=== PATIENT | male | born 1975 | race Caucasian/White ===

== ENCOUNTER 2022-09-19 16:16 | Emergency (ER) | payer BC, SELFPAY ==
[2022-09-19 16:17] VITALS: BP 141/97; PULSE 80; RESP 18; TEMP 36.4; O2SAT 98; BMI 32.6
[2022-09-19 16:25] VITALS: BP 146/94; PULSE 69; RESP 18; O2SAT 98
--- NOTE | 2022-09-19 16:35 | EKG12_ITS ---
Test Reason : DIZZINESS Blood Pressure : / mmHG Vent. Rate : 069 BPM Atrial Rate : 069 BPM P-R Int : 172 ms QRS Dur : 094 ms QT Int : 390 ms P-R-T Axes : 060 072 052 degrees QTc Int : 417 ms Sinus rhythm with marked sinus arrhythmia Otherwise normal ECG Confirmed by DIMITRIOS CHEN, TERRA ([id number]), legal editor DELFINA PATTON ([id number]) on 09/23/2022 12:18:26 P M Referred By: Confirmed By:ORIN PLUNKETT MD
--- NOTE | 2022-09-19 16:35 | CT_ITS ---
EXAM: CT HEAD WITHOUT INTRAVENOUS CONTRAST CLINICAL INDICATION: dizziness TECHNIQUE: Multiple axial images were obtained of the head without intravenous contrast. This CT exam was performed using one or more of the following dose reduction techniques: automated exposure control, adjustment of the mA and/or kV according to patient size, and/or use of iterative reconstruction technique. This report was created using [employer] report generation technology. RADIATION DOSE: CTDIvol = 44.99 mGy, DLP = 812.98 mGy-cm COMPARISON: None. FINDINGS: BRAIN AND EXTRA-AXIAL SPACES: Unremarkable. No intra- or extra-axial hemorrhage. No evidence of acute infarct. No intracranial mass or mass effect. There is preservation of the sierar/white matter interface. Posterior fossa structures are unremarkable. Ventricles are appropriate for age. No hydrocephalus. Basal cisterns are patent. BONES/JOINTS: Unremarkable. No discrete lytic or blastic abnormalities. SINUSES: Unremarkable as visualized. Clear. MASTOID AIR CELLS: Unremarkable. Clear. ORBITS: Visualized globes, extraocular muscles, optic nerves and retrobulbar fat appear unremarkable. CT/Brain/Head without Contrast IMPRESSION: Negative head/brain CT without intravenous contrast. Electronically Signed: Price Ruvalcaba MD at 17:12 EDT ,
--- NOTE | 2022-09-19 16:37 | EX.ED.DYSGE1 ---
HPI <VARINDER Higuera - Last Filed: 09/19/22 18:57> History of Present Illness Chief Complaint: Dizziness Narrative Narrative: Patient presenting today with dizziness that he has had since last Friday. He states that on Friday he went to urgent care where they diagnosed him with vertigo and placed him on meclizine. He has found no relief from the meclizine, however, his symptoms did improve over this past week up until yesterday and today when they worsened. He states that the dizziness is described as the room spinning around him and is worsened with head movement. He does have some nausea but denies fever, chills, recent illness, abdominal pain, vomiting, tinnitus, paresthesias, and weakness. He denies a PMH of any chronic health conditions. PFSH <VARINDER Higuera - Last Filed: 09/19/22 18:57> PFSH Medical History no medical history Home Medications ketorolac 10 mg tablet 10 mg PO Q6H PRN Pain ##20 02/26/16 [Rx Last Taken Unknown] ondansetron 4 mg disintegrating tablet 4 mg PO Q8H PRN PRN Nausea #10 tabs 02/26/16 [Rx Last Taken Unknown] oxycodone-acetaminophen 5 mg-325 mg tablet 1 - 2 tab PO Q4H PRN PRN Pain #20 tabs 02/26/16 [Rx Last Taken Unknown] tamsulosin 0.4 mg capsule 0.4 mg PO DAILY 14 days 02/26/16 [Rx Last Taken Unknown] lorazepam 1 mg tablet (Ativan) 1 mg PO DAILY PRN vertigo #5 tabs 09/19/22 [Rx Last Taken Unknown] Allergy/AdvReac Type Severity Reaction Status Date / Time No Known Allergies Allergy Verified 09/19/22 16:19 Social History Smoking Status: Current every day smoker tobacco type: cigarettes ROS <VARINDER Higuera - Last Filed: 09/19/22 18:57> ROS ED Constitutional Constitutional ED: Denies chills, fever(s) or sweats Eyes Eyes: Denies blurry vision or diplopia Cardiovascular Cardiovascular: Denies chest pain or palpitations Respiratory/Chest Respiratory/Chest: Denies cough or dyspnea Gastrointestinal Gastrointestinal: Denies abdominal pain, nausea or vomiting Musculoskeletal Musculoskeletal: Denies arthralgias or myalgias Integumentary Denies abscess, Abrasions or rash Neurologic Neurologic: Reports dizziness; Denies headache(s), paresthesias or weakness Psychiatric Psychiatric: Denies anxiety, depression, suicidal ideation or suicidal thoughts EXAM <VARINDER Higuera - Last Filed: 09/19/22 18:57> Physical Exam Const Vital Signs: 09/19/22 16:17 09/19/22 16:17 09/19/22 16:25 Temperature 97.6 F L Temperature Source Temporal Pulse Rate 80 69 Respiratory Rate 18 18 Respiratory Effort Blood Pressure 141/97 H 146/94 H Blood Pressure Mean 111 111 Pulse Ox 98 98 Oxygen Delivery Method Room Air Room Air 09/19/22 16:26 Temperature Temperature Source Pulse Rate Respiratory Rate Respiratory Effort Normal Blood Pressure Blood Pressure Mean Pulse Ox Oxygen Delivery Method Positive well nourished, well developed and no apparent distress General Appearance ED: well developed HEENT Reports normocephalic, head/scalp atraumatic and TM's clear Tympanic Membrane ED: Yes TM's clear Mouth ED: Yes moist mucous membranes normal Eyes PERRL and EOMs intact bilaterally Neck full ROM and supple Chest Wall inspection of chest normal Resp normal respiratory effort and clear to auscultation bilaterally Cardio regular rate and regular rhythm GI soft to palpation, non-tender, non-distended and no masses Back/Spine normal ROM and normal to inspection Extremity normal to inspection and full ROM Neuro oriented x3, CN's II-XII intact bilaterally, moves all extremities, no focal motor deficits and no sensory deficits noted Sensorium / Orientation: awake and alert Motor Exam: strength 5/5 throughout Psych mental status grossly normal and thought process normal Skin no rashes or lesions noted and no wounds <Dr. Behzad Dahl MD - Last Filed: 09/19/22 16:46> Physical Exam Const Vital Signs: 09/19/22 16:17 09/19/22 16:17 09/19/22 16:25 Temperature 97.6 F L Temperature Source Temporal Pulse Rate 80 69 Respiratory Rate 18 18 Respiratory Effort Blood Pressure 141/97 H 146/94 H Blood Pressure Mean 111 111 Pulse Ox 98 98 Oxygen Delivery Method Room Air Room Air 09/19/22 16:26 Temperature Temperature Source Pulse Rate Respiratory Rate Respiratory Effort Normal Blood Pressure Blood Pressure Mean Pulse Ox Oxygen Delivery Method [facility] <VARINDER Higuera - Last Filed: 09/19/22 18:57> [facility] Narrative Medical decision making narrative: I have personally performed a face to face assessment of the patient and have reviewed the ALYSSA Note. I performed a substantive portion of the visit including all aspects of the following. My awad findings include: History is [46-year-old male that I am seeing with our physician orthopaedic physician assistant. Complaining of vertigo-like symptoms. With room spinning dizziness. Denies headache or head trauma. No history of stroke. No trouble with his vision or speech. No trouble moving his arms or legs. Worse with head movement. Seen in urgent care. Placed on meclizine with some improvement but now worse.] Exam is [46-year-old male no acute distress. Sitting upright in bed. Vital signs stable afebrile. H EENT exam unremarkable. TMs normal. No wax. Pupils round reactive light. No facial droop. No trauma. Neck nontender. No meningismus. Lungs clear. Heart regular rhythm. Chest wall nontender. Abdomen soft nontender. Back nontender. 5 out of 5 breakfast bar attendant strength. Finger-nose within normal limits. Dorsi plantarflexion intact. [id number] within normal limits. Calves nontender no edema. Neurologically is awake and alert with no focal motor deficits. NIH is 0. Positive Hallpike. When I have him rotate his head from left to right is dizziness is worse.] Medical Decision Making [46-year-old appears to be benign positional vertigo. Neurologic exam and physical exam are otherwise unremarkable. Due to his symptoms not significantly improving in spite of meclizine we will CAT scan his head check screening labs and EKG.] Other additions or changes: [None] Patient presenting due to vertigo that he has had for about a week. CBC and BMP both unremarkable, head CT does not show any acute intracranial findings. Patient does have a positive Hallpike test. His vertigo is worsened with positional changes. Patient has been given Ativan here in the emergency department as well as a short dose for home. He states meclizine has not been helping him. He states he has been trying the Jean Claude maneuver at home without any relief. He does not currently have a PCP so I have referred him to one. He will be discharged home in stable condition and is comfortable with plan. Lab Data Attestation: I reviewed the patient's lab results. Labs: Laboratory Results - last 24 hr 09/19/22 09/19/22 16:43 16:43 WBC 8.3 RBC 5.33 Hgb 16.6 H Hct 47.6 MCV 89.3 MCH 31.1 MCHC 34.9 RDW Std Deviation 41.9 RDW Coeff of Maren 12.7 Plt Count 325 MPV 8.8 Immature Gran % (Auto) 0.200 Neut % (Auto) 59.2 Lymph % (Auto) 30.7 [place] % (Auto) 8.2 Eos % (Auto) 1.2 Baso % (Auto) 0.5 Absolute Neuts (auto) 4.9 Absolute Lymphs (auto) 2.54 Nucleated RBC % 0 Sodium 141 Potassium 3.9 Chloride 107 Carbon Dioxide 27.0 Anion Gap 7 BUN 12 Creatinine 0.86 Estim Creat Clear Calc 101.41 Est GFR (MDRD) Af Amer 123 Est GFR (MDRD) Non-Af 102 BUN/Creatinine Ratio 14.0 Glucose 111 H Calcium 9.2 Radiography Chest X-Ray - ED: Read by ED Physician and Read by Radiologist Diagnostic Testing: Clinical Impression(s) from Imaging Studies Brain CT 09/19/22 16:35 IMPRESSION: Negative head/brain CT without intravenous contrast. Electronically Signed: Price Ruvalcaba MD at 17:12 EDT Reading Location ID and State: [facility] / [place] , Service support , EKG Initial EKG: Comments: Sinus rhythm, no ST elevation, 69 bpm. EKG reviewed and interpreted by attending ED physician. <Dr. Behzad Dahl MD - Last Filed: 09/19/22 16:46> [facility] MDM Narrative Medical decision making narrative: I have personally performed a face to face assessment of the patient and have reviewed the ALYSSA Note. I performed a substantive portion of the visit including all aspects of the following. My awad findings include: History is [46-year-old male that I am seeing with our physician orthopaedic physician assistant. Complaining of vertigo-like symptoms. With room spinning dizziness. Denies headache or head trauma. No history of stroke. No trouble with his vision or speech. No trouble moving his arms or legs. Worse with head movement. Seen in urgent care. Placed on meclizine with some improvement but now worse.] Exam is [46-year-old male no acute distress. Sitting upright in bed. Vital signs stable afebrile. H EENT exam unremarkable. TMs normal. No wax. Pupils round reactive light. No facial droop. No trauma. Neck nontender. No meningismus. Lungs clear. Heart regular rhythm. Chest wall nontender. Abdomen soft nontender. Back nontender. 5 out of 5 breakfast bar attendant strength. Finger-nose within normal limits. Dorsi plantarflexion intact. [id number]-[id number] within normal limits. Calves nontender no edema. Neurologically is awake and alert with no focal motor deficits. NIH is 0. Positive Hallpike. When I have him rotate his head from left to right is dizziness is worse.] Medical Decision Making [46-year-old appears to be benign positional vertigo. Neurologic exam and physical exam are otherwise unremarkable. Due to his symptoms not significantly improving in spite of meclizine we will CAT scan his head check screening labs and EKG.] Other additions or changes: [None] Lab Data Labs: Laboratory Results - last 24 hr 09/19/22 09/19/22 16:43 16:43 WBC 8.3 RBC 5.33 Hgb 16.6 H Hct 47.6 MCV 89.3 MCH 31.1 MCHC 34.9 RDW Std Deviation 41.9 RDW Coeff of Maren 12.7 Plt Count 325 MPV 8.8 Immature Gran % (Auto) 0.200 Neut % (Auto) 59.2 Lymph % (Auto) 30.7 [place] % (Auto) 8.2 Eos % (Auto) 1.2 Baso % (Auto) 0.5 Absolute Neuts (auto) 4.9 Absolute Lymphs (auto) 2.54 Nucleated RBC % 0 Sodium 141 Potassium 3.9 Chloride 107 Carbon Dioxide 27.0 Anion Gap 7 BUN 12 Creatinine 0.86 Estim Creat Clear Calc 101.41 Est GFR (MDRD) Af Amer 123 Est GFR (MDRD) Non-Af 102 BUN/Creatinine Ratio 14.0 Glucose 111 H Calcium 9.2 Radiography Diagnostic Testing: Clinical Impression(s) from Imaging Studies Brain CT 09/19/22 16:35 IMPRESSION: Negative head/brain CT without intravenous contrast. Electronically Signed: Price Ruvalcaba MD at 17:12 EDT , Discharge Plan Triage Chief Complaint: Dizziness ED Midlevel Provider: Lashaun Jesus ED Provider: Behzad Dahl Dx/Rx/DC Orders Clinical Impression: BPV (benign positional vertigo) Instructions: ED BPV Vertigo Prescriptions: New lorazepam [Ativan] 1 mg tablet 1 mg PO DAILY PRN (Reason: vertigo) Qty: 5 0RF No Action ketorolac 10 MG tablet 10 mg PO Q6H PRN (Reason: Pain) Qty: 20 0RF ondansetron 4 MG tablet 4 mg PO Q8H PRN PRN (Reason: Nausea) Qty: 10 0RF tamsulosin 0.4 MG capsule 0.4 mg PO DAILY 14 Days 0RF oxycodone-acetaminophen 1 TABLET tablet 1 - 2 tab PO Q4H PRN PRN (Reason: Pain) Qty: 20 0RF Primary Care Provider: Care Physician,No Primary Referrals: Bren Dunn DO [Med Staff - Active Staff] - 5-7 Days Care Physician,No Primary [Primary Care Provider] - Activity Restrictions/Additional Instructions: You can try the Ativan for relief of your symptoms. Also continue to take the meclizine. Disposition Disposition: Home, Self Care Discharge Date/Time: 09/19/22 18:14
[2022-09-19 16:51] LABS: Absolute Lymphocyte Count 2.54 X10^3/uL (0.83-4.51); Absolute Neutrophil Count 4.9 X10^3/uL (2.0-7.7); Basophil# 0.04 X10^3/uL; Basophil% 0.5 % (0-1); Eosinophils% 1.2 % (0-5); Hematocrit 47.6 % (40-54); Hemoglobin 16.6 g/dL (13.0-16.5); Lymphocyte # 2.54 X10^3/ul (0.83-4.51); Lymphocyte % 30.7 % (19-41); Mean Corp Hgb Conc 34.9 g/dL (32-36); Mean Corpuscular Hgb 31.1 pg (27.0-32.0); Mean Corpuscular Volume 89.3 fL (80-94); Mean Platelet Vol. 8.8 fl (6.2-12.0); Monocyte# 0.68 X10^3/uL; Monocyte% 8.2 % (0-10); NRBC Flagged by Analyzer 0 % (0-5); Neutrophil # 4.89 X10^3/uL (2.7-7.7); Neutrophil % 59.2 % (47-70); Platelet Count 325 K/mm3 (150-450); RBC Distribution Width CV 12.7 % (11.6-14.6); RBC Distribution Width SD 41.9 fl (35.1-43.9); Red Blood Count 5.33 M/mm3 (4.6-6.2); White Blood Count 8.3 K/mm3 (4.4-11.0)
[2022-09-19 17:04] LABS: Anion Gap 7 (5-15); BUN 12 mg/dL (7-18); Calcium,Total 9.2 mg/dL (8.5-10.1); Chloride 107 mmol/L (98-107); Creatinine, Serum 0.86 mg/dL (0.70-1.30); EST Glomerular Filtration Rate 102 mL/min (>60); Est Glom Filt Rate - Afr Amer 123 mL/min (>60); Estimated Creatinine Clearance 101.41 ml/min; Glucose 111 mg/dL (74-106); Potassium 3.9 mmol/L (3.5-5.1); Sodium Level 141 mmol/L (136-145)
[2022-09-19] MEDS: LORazepam 2 MG/ML Syringe 1 MG IV (17:50)
== END 2022-09-19 18:14 | disposition home or self-care (01) ==
PROVIDERS: Physician Assistant; Emergency Provider Emergency Medicine; Visit Provider Emergency Medicine
DX: H81.10 Benign paroxysmal vertigo, unspecified ear (principal); F17.210 Nicotine dependence, cigarettes, uncomplicated
CPT/HCPCS: 70450; 80048; 85025; 93005; 96374; 99284; A4216

== ENCOUNTER 2025-04-30 15:45 | Emergency (ER) | payer BC, SELFPAY ==
[2025-04-30 15:45] VITALS: BP 123/94; PULSE 78; RESP 16; TEMP 36.9; O2SAT 99; BMI 28.8
--- NOTE | 2025-04-30 16:07 | RAD_ITS ---
PROCEDURE: ANKLE MIN 3 VIEWS 04/30/2025 REASON FOR EXAM: LEFT ANKLE PAIN S/P FALL TECHNIQUE: Procedure Code: RADANK Modality: DX Procedure: ANKLE MIN 3 VIEWS Laterality: Left COMPARISON: None RAD/Ankle min 3 Views IMPRESSION: No acute fracture or dislocations. No significant degenerative changes. Minimal ankle effusion and minimal diffuse soft tissue edema. No radiographic foreign body. Reading Location: [id number]
--- NOTE | 2025-04-30 16:09 | EDS_ITS ---
HPI History of Present Illness Chief Complaint: Lower Extremity Injury Informant: patient Occured/Mechanism Mechanism/Context: Yes fall Onset/Context/Timing Onset: Today Narrative Narrative: This is a 49-year-old male who presents emergency department with left ankle pain. Patient states that he was on a lift. He thought it was on the ground, but when he went to step down it was actually about 2 feet off the ground. He states he rolled his ankle, inverting it. He did not hit his head when he fell down. He immediately had pain and swelling on the lateral aspect of the left ankle. He can walk, but it is very painful to ambulate. No prior injuries or surgeries to the left ankle. He took no analgesia prior to arrival. No open wounds. PFSH PFSH Home Medications ?Medication ?Instructions ?Recorded ?Last Taken ?Type ibuprofen 800 mg tablet 800 mg PO Q8H PRN pain 7 day s #21 04/30/25 Unknown Rx tabs Allergy/AdvReac Type Severity Reaction Status Date / Time No Known Allergies Allergy Verified 04/30/25 15:54 Social History Smoking Status: Current every day smoker tobacco type: cigarettes ROS ROS ED Cardiovascular Cardiovascular: Denies chest pain Respiratory/Chest Respiratory/Chest: Denies dyspnea Gastrointestinal Gastrointestinal: Denies abdominal pain Musculoskeletal Musculoskeletal: Reports arthralgias; Denies back pain or neck pain Integumentary Denies Abrasions EXAM Physical Exam Const Vital Signs: 04/30/25 15:45 Temperature 98.5 F Temperature Source Oral Pulse Rate 78 Respiratory Rate 16 Blood Pressure 123/94 H Blood Pressure Mean 103 Pulse Ox 99 Oxygen Delivery Method Room Air Positive well nourished, well developed, oriented x3 and healthy appearing General Appearance ED: active, cooperative and well developed Orientation / Consciousness: awake and oriented to person Exam Limitations: no limitations HEENT Reports normocephalic, head/scalp atraumatic, moist mucous membranes, nasal mucous membranes and turbinates normal and oropharynx normal normocephalic, normal to inspection and atraumatic Face and Sinus: normal facial exam Eyes PERRL, EOMs intact bilaterally and conjunctivae normal General Eye ED: Yes normal appearance of both eyes Visual Acuity: acuity normal Eyelid: eyelids normal Conjunctiva: conjunctiva normal Sclera: sclera normal Cornea: cornea normal Pupil: PERRL and accommodation reflex normal EOM: EOM abnormal Neck full ROM Chest Wall inspection of chest normal Chest: abnormal inspection of the chest Resp normal respiratory effort and normal air movement Effort and Inspection: able to speak in complete sentences and symmetric chest m ovement Auscultation: clear to auscultation bilaterally Cardio regular rate and regular rhythm Rate: regular rate Peripheral Pulses: pulses 2+ throughout GI Rectal Exam: deferred Back/Spine normal ROM and normal to inspection Cervical Spine: cervical ROM normal Extremity normal capillary refill Extremity Narrative: Swelling and tenderness to palpation focally over the left lateral malleolus. No obvious deformity. Normal flexion and extension of the left ankle without significant pain. No tenderness over the calf or lateral proximal fibula. Left PT pulse 2+ with good perfusion down through the foot. Neuro oriented x3, CN's II-XII intact bilaterally, moves all extremities and no focal motor deficits Sensorium / Orientation: awake and alert Motor Exam: strength 5/5 throughout Psych mental status grossly normal Appearance: grossly normal and appropriate Speech: normal speech Skin no rashes or lesions noted MDM MDM Radiography Chest X-Ray - ED: Read by ED Physician, Read by Radiologist and Normal Diagnostic Testing: Clinical Impression(s) from Imaging Studies Ankle X-Ray 04/30/25 16:07 IMPRESSION: No acute fracture or dislocations. No significant degenerative changes. Minimal ankle effusion and minimal diffuse soft tissue edema. No radiographic foreign body. Reading Location: [facility] I personally reviewed the patient's x-ray imaging which shows no fracture or dislocation of the left ankle. Treatment and Re-Evaluation Narrative: Patient presented after a fall from a height and inverted the left ankle causing pain and swelling. Patient was given 1 oxycodone here in the emergency department. On repeat evaluation pain improved. X-ray imaging showed no fra cture or dislocation. Patient was offered crutches for ambulatory support, but he declined. I did prescribe the patient a walking boot here for comfort. RICE therapy encouraged. I will prescribe him 800 mg ibuprofen as well for pain control at home. He states he does not need any type of work excuse. He just understands discharge instructions. All questions answered. Patient discharged home. Discharge Plan Triage Chief Complaint: Lower Extremity Injury ED Provider: Calvin,Jazmyn Dx/Rx/DC Orders Clinical Impression: Inversion sprain of left ankle Instructions: ED Ankle Sprain (Adult), ED RICE Prescriptions: New ibuprofen 800 mg tablet 800 mg PO Q8H PRN (Reason: pain) 7 Days Qty: 21 0RF Primary Care Provider: Care Physician,No Primary Referrals: Care Physician,No Primary [Primary Care Provider, Medical] Print Language: Amharic Disposition Disposition: Home, Self Care
[2025-04-30 18:18] VITALS: BP 134/78; PULSE 61; RESP 16; TEMP 37.1; O2SAT 99
== END 2025-04-30 18:19 | disposition home or self-care (01) ==
PROVIDERS: Emergency Provider Emergency Medicine; Visit Provider Emergency Medicine
DX: S93.402A Sprain of unspecified ligament of left ankle, initial encounter (principal); F17.210 Nicotine dependence, cigarettes, uncomplicated; W17.89XA Other fall from one level to another, initial encounter
CPT/HCPCS: 73610; 99283